=== PATIENT | female | born 1975 | race Caucasian/White ===

== ENCOUNTER 2018-05-30 14:16 | Outpatient (CLI) | payer BC ==
--- NOTE | 2018-05-30 15:48 | MMO ---
BILATERAL SCREENING MAMMOGRAM: 05/30/18 Reference made to prior mammograms which date back to April 2015. Exam is interpreted with the assi stance of CAD. FINDINGS: There is heterogeneously dense breast parenchyma bilaterally which limits sensitivity to mammography. There is a focal asymmetry involving the middle depth slightly outer left breast incompletely asses sed. IMPRESSION: BIRADS 0: Incomplete: Need Additional Imaging Evaluation and/or Prior Mammograms for Comparison. Recommend diagnostic left mammogram to further evaluate focal asymmetry of the left breast. As necess heaven, ultrasound may also be performed. POS: [facility]
== END 2018-05-30 14:17 | disposition home or self-care (01) ==
LOC: SCSMAMMO 14:16
PROVIDERS: ATTEND Obstetrics & Gynecology
DX: Z12.31 Encounter for screening mammogram for malignant neoplasm of breast (principal)
CPT/HCPCS: 77067

== ENCOUNTER 2018-06-14 08:52 | Outpatient (CLI) | payer BC | END 2018-06-14 08:53 | disposition home or self-care (01) | LOC: BICMAMMO 08:52 | PROVIDERS: ATTEND Obstetrics & Gynecology | DX: R92.2 Inconclusive mammogram (principal); N63.20 Unspecified lump in the left breast, unspecified quadrant | CPT/HCPCS: G0279 ==